=== PATIENT | female | born 1945 | race Caucasian/White ===

== ENCOUNTER 2018-02-07 17:35 | Emergency (ER) | payer OTHER ==
[~2018-02-07] VITALS: Ht 162.6 cm; Wt 68.0 kg
[2018-02-07] MEDS ORDERED: SYNTHROID50 MCG PO (17:47)
[2018-02-07] MEDS ORDERED: SERTRALINE HCL100 MG PO (17:47)
[2018-02-07] MEDS ORDERED: MOBIC15 MG PO (17:47)
[2018-02-07] MEDS ORDERED: OMEPRAZOLE20 MG PO (17:47)
[2018-02-07] MEDS ORDERED: CALCIUM 500 +1 EAC5 PO (17:47)
[2018-02-07] MEDS ORDERED: FLONASE 0.05%50 MCG NASAL (17:47)
[2018-02-07] MEDS ORDERED: ASPIR 8181 MG PO (17:48)
[2018-02-07] MEDS ORDERED: GARLIC OIL1000 MG PO (17:48)
[2018-02-07] MEDS ORDERED: UNICOMPLEX M TA1 TA1 PO (17:48)
[2018-02-07] MEDS ORDERED: B COMPLEX1 EACH PO (17:48)
[2018-02-07] MEDS ORDERED: VITAMIN D3400 UNIT PO (17:48)
[2018-02-07 19:27] LABS: HEMATOCRIT 38.4 % (37.0-47.0); HEMOGLOBIN 12.8 gm/dL (12.0-15.0); MCH 32.4 pg (26.0-34.0); MCHC 33.3 g/dL (28.0-37.0); MCV 97.5 fL (80.0-100.0); MPV 9.9 fl. (7.2-11.1); NUCLEATED RBCS 0 /100WBC; PLATELET COUNT* 173 thou/uL (150-400); RBC 3.94 mil/uL (4.20-5.00); WBC 11.4 thou/uL (4.0-11.0)
[2018-02-07 19:41] LABS: ANION GAP 11 mmol/L (7-16); BUN 19 mg/dL (7-18); CALCIUM 8.7 mg/dL (8.5-10.1); CHLORIDE 103 mmol/L (98-107); CO2 25 mmol/L (21-32); CREATININE 0.7 mg/dL (0.6-1.3); GLUCOSE 133 mg/dL (70-99); POTASSIUM 3.4 mmol/L (3.5-5.1); SODIUM 139 mmol/L (136-145)
[2018-02-07 19:51] LABS: ABSOLUTE LYMPHOCYTES 0.8 thou/uL (0.8-5.3); ABSOLUTE MONOCYTES 0.5 thou/uL (0.0-1.2); ABSOLUTE NEUTROPHILS 10.1 thou/uL (1.6-8.1); PLATELET ESTIMATE ADEQUATE
[2018-02-07 19:53] LABS: ALBUMIN 3.8 g/dL (3.4-5.0); ALKALINE PHOSPHATASE 99 U/L (46-116); LIPASE 425 U/L (73-393); SGOT 149 U/L (15-37); SGPT 78 U/L (30-65); TOTAL BILIRUBIN 0.8 mg/dL (<0.1-1.0); TOTAL PROTEIN 7.3 g/dL (6.4-8.2); TROPONIN-I LEVEL <0.06 ng/mL (<0.06)
[2018-02-07 20:43] LABS: URINE BILIRUBIN NEGATIVE (Negative); URINE BLOOD NEGATIVE (Negative); URINE CLARITY CLEAR; URINE COLOR YELLOW; URINE GLUCOSE-RANDOM NEGATIVE (Negative); URINE KETONES 1+ (Negative); URINE LEUKOCYTES-REFLEX NEGATIVE (Negative); URINE NITRITE-REFLEX NEGATIVE (Negative); URINE PROTEIN NEGATIVE (Negative)
[2018-02-07] MEDS ORDERED: ZOFRAN ODT4 MG PO (20:50)
[2018-02-07 21:10] VITALS: BP 138/46
--- NOTE | 2018-02-08 10:33 | EKG ---
[place] [address] ELECTROCARDIOGRAM REPORT Name: MARYLIN FARIAS Room: [facility]#: [id number] Admission: 02/07/18 Attend Phys: Discharge: 02/07/18 Date of : 41 Report #: [id number] THIS REPORT FOR: //name// [facility] ED Test Date: 2018-02-07 Test Time: 18:54:31 Pat Name: MARYLIN FARIAS Department: Room: Gender: F Curriculum And Assessment Coordinator: ANDREA : 1945 Requested By: Gonzalo Farley Order Number: [id number] MD: Yann Day Measurements Intervals [place] Rate: 56 P: 53 MT: 166 QRS: -14 QRSD: 99 T: 4 QT: 441 QTc: 426 Interpretive Statements Sinus bradycardia Left ventricular hypertrophy Baseline wander in lead(s) V5 No previous ECG available for comparison Electronically Signed On 02-08-2018 10:33:07 CONCRETE MASON by Yann Day [email or web address] <ELECTRONICALLY SIGNED> By: Yann Day MD, [facility] 02/08/18 1033 53 53 Yann Day MD, FACC /EPI
== END 2018-02-07 21:11 | disposition home or self-care (01) ==
LOC: M.ERS 17:35
PROVIDERS: Nurse Practitioner Family
DX: K21.9 Gastro-esophageal reflux disease without esophagitis (principal); K52.9 Noninfective gastroenteritis and colitis, unspecified; Z88.5 Allergy status to narcotic agent